=== PATIENT | female | born 1995 | race Caucasian/White ===

== ENCOUNTER 2022-04-01 12:27 | Outpatient (CLI) | payer BC, MEDICAID, SELFPAY ==
--- NOTE | 2022-04-01 | US_ITS ---
WS: [id number] OB ultrasound, 04/01/2022 Clinical Data: 18 WEEKS GESTATION OF Comparison: None. Findings: There is a single intrauterine in the breech presentation. The placenta is Anterior and gra de 0. There is a normal amount of amnionic fluid. The heart rate is 151 beats per minute. Measurements of growth and development: BPD: 4.5 cm 19 weeks 5 days HC: 16.4 cm 19 weeks 3 days AC: 13.9 cm 19 weeks 2 days FL: 3.1 cm 19 weeks 3 days The estimated weight is 290 g or approximately 10 ounces. The estimated gestational age is 19 weeks 3 days with an CARLENE of approximately 08/23/2022.. anatomy show a normal stomach, kidneys, bladder, cord insertion, three-vessel cord, entire spin e, four-chamber heart, lateral cerebral ventricles, cerebellum and cisterna magna. US/US OB >= 14 weeks fetus [id number] Impression: 1. Single intrauterine in breech presentation. 2. Estimated gestational age 19 weeks 3 days with an CARLENE of 08/23/2022.. 3. heart rate 151 beats per minute.
== END 2022-04-01 12:28 | disposition home or self-care (01) ==
PROVIDERS: Family Provider Pediatrics Adolescent Medicine; Visit Provider Family Medicine
DX: O26.892 Other specified pregnancy related conditions, second trimester (principal); Z3A.18 18 weeks gestation of pregnancy
CPT/HCPCS: 76805

== ENCOUNTER 2022-06-16 22:50 | Outpatient (CLI) | payer BC, MEDICAID, SELFPAY ==
[2022-06-16 22:58] VITALS: TEMP 36.1
[2022-06-16 23:00] VITALS: BP 108/70; PULSE 67
[2022-06-16 23:10] VITALS: BMI 29.6
[2022-06-16 23:14] VITALS: BP 118/67; PULSE 63
[2022-06-16 23:26] LABS: Add Urine Culture? No; Bacteria Urine 2+ /hpf; Bilirubin Urine Neg (Negative); Blood Urine Neg (Negative); Glucose Urine UA Norm (Normal); Ketones Urine Negative (Negative); Leukocyte Esterase Urine Negative (Negative); Nitrate Urine Negative (Negative); Protein Urine Neg (Negative); RBC Urine 0-4 /hpf (0-2); Specific Gravity, Urine 1.015 (1.005-1.030); Urine Appearance Clear (CLEAR); Urine Color Yellow (Yellow); Urobilinogen Urine Norm (Negative); pH Urine 6.5 (5-7)
[2022-06-16 23:28] VITALS: BP 119/68; PULSE 56
[2022-06-16 23:43] VITALS: BP 121/72; PULSE 54
[2022-06-16 23:58] VITALS: BP 118/63; PULSE 57
[2022-06-17] VITALS (7 sets, daily range): BP systolic 106–124; BP diastolic 57–73; PULSE 51–60
[2022-06-17] MEDS: ondansetron 4 MG Tablet PO (01:24)
== END 2022-06-17 01:49 | disposition home or self-care (01) ==
LOC: OPOB 22:53 → OBGYN 22:54
PROVIDERS: Family Provider Pediatrics Adolescent Medicine; Visit Provider Family Medicine
DX: O26.899 Other specified pregnancy related conditions, unspecified trimester (principal); Z3A.00 Weeks of gestation of pregnancy not specified; M54.50 Low back pain, unspecified; R11.0 Nausea
CPT/HCPCS: 59025; 81001; 99211; Q0162

== ENCOUNTER 2022-07-10 09:57 | Outpatient (CLI) | payer BC, MEDICAID, SELFPAY ==
[2022-07-10 10:09] VITALS: TEMP 35.5
[2022-07-10 10:10] VITALS: BP 121/77; PULSE 78
[2022-07-10 10:25] VITALS: BP 107/69; PULSE 81
[2022-07-10 10:34] VITALS: RESP 15
[2022-07-10 10:35] VITALS: BMI 29.7
[2022-07-10 10:40] VITALS: BP 105/67; PULSE 71
== END 2022-07-10 11:04 | disposition home or self-care (01) ==
LOC: OPOB 09:57 → OBGYN 09:58
PROVIDERS: Family Provider Pediatrics Adolescent Medicine; Visit Provider Family Medicine
DX: O24.419 Gestational diabetes mellitus in pregnancy, unspecified control (principal)
CPT/HCPCS: 59025

== ENCOUNTER 2022-07-14 09:25 | Outpatient (CLI) | payer BC, MEDICAID, SELFPAY ==
[2022-07-14 09:31] VITALS: BP 118/54; PULSE 90; TEMP 35.6
[2022-07-14 10:00] VITALS: BMI 30.4
[2022-07-14 11:02] VITALS: BP 118/54; PULSE 90; RESP 16; TEMP 35.6
== END 2022-07-14 10:20 | disposition home or self-care (01) ==
LOC: OPOB 09:28 → OBGYN 09:28
PROVIDERS: Family Provider Pediatrics Adolescent Medicine; Visit Provider Family Medicine
DX: O24.419 Gestational diabetes mellitus in pregnancy, unspecified control (principal); Z3A.19 19 weeks gestation of pregnancy
CPT/HCPCS: 59025; 99211

== ENCOUNTER 2022-07-17 11:00 | Outpatient (CLI) | payer BC, MEDICAID, SELFPAY ==
[2022-07-17 11:13] VITALS: TEMP 35.8
[2022-07-17 11:14] VITALS: BP 110/68; PULSE 75
[2022-07-17 11:33] VITALS: BMI 29.6
[2022-07-17 11:35] VITALS: BP 101/59; PULSE 59
[2022-07-17 11:55] VITALS: BP 101/55; PULSE 63
[2022-07-17 12:02] VITALS: TEMP 35.7
[2022-07-17 12:09] VITALS: BP 101/55; PULSE 68; RESP 18; TEMP 35.7
== END 2022-07-17 12:05 | disposition home or self-care (01) ==
LOC: OPOB 11:00 → OBGYN 11:01
PROVIDERS: Family Provider Pediatrics Adolescent Medicine; Visit Provider Family Medicine
DX: O24.419 Gestational diabetes mellitus in pregnancy, unspecified control (principal); Z3A.34 34 weeks gestation of pregnancy
CPT/HCPCS: 59025

== ENCOUNTER 2022-07-21 13:10 | Outpatient (CLI) | payer BC, MEDICAID, SELFPAY ==
[2022-07-21 13:16] VITALS: BP 111/67; PULSE 92; TEMP 35.8
[2022-07-21 13:20] VITALS: RESP 17; BMI 29.2
[2022-07-21 13:46] VITALS: BP 99/65; PULSE 68
[2022-07-21 13:55] VITALS: BP 99/65; PULSE 68
== END 2022-07-21 13:55 | disposition home or self-care (01) ==
LOC: OPOB 13:12 → OBGYN 13:13
PROVIDERS: Family Provider Pediatrics Adolescent Medicine; Visit Provider Family Medicine
DX: O24.419 Gestational diabetes mellitus in pregnancy, unspecified control (principal); Z3A.00 Weeks of gestation of pregnancy not specified
CPT/HCPCS: 59025

== ENCOUNTER 2022-07-28 10:57 | Outpatient (CLI) | payer BC, MEDICAID, SELFPAY ==
[2022-07-28 11:03] VITALS: BP 125/58; PULSE 86
[2022-07-28 11:11] VITALS: BMI 30.3
[2022-07-28 11:25] VITALS: BP 106/67; PULSE 88
[2022-07-28 11:31] VITALS: BP 109/69; PULSE 85
== END 2022-07-28 11:32 | disposition home or self-care (01) ==
LOC: OPOB 10:59 → OBGYN 11:00
PROVIDERS: Family Provider Pediatrics Adolescent Medicine; Visit Provider Family Medicine
DX: O26.899 Other specified pregnancy related conditions, unspecified trimester (principal); Z3A.00 Weeks of gestation of pregnancy not specified
CPT/HCPCS: 59025; 99211

== ENCOUNTER 2022-07-31 10:36 | Outpatient (CLI) | payer BC, MEDICAID, SELFPAY ==
[2022-07-31 10:45] VITALS: BP 121/65; PULSE 85; BMI 29.7
== END 2022-07-31 11:10 | disposition home or self-care (01) ==
LOC: OPOB 10:36 → OBGYN 10:37
PROVIDERS: Family Provider Pediatrics Adolescent Medicine; Visit Provider Family Medicine
DX: O24.419 Gestational diabetes mellitus in pregnancy, unspecified control (principal); Z3A.00 Weeks of gestation of pregnancy not specified
CPT/HCPCS: 59025

== ENCOUNTER 2022-08-04 10:37 | Outpatient (CLI) | payer BC, MEDICAID, SELFPAY ==
[2022-08-04 10:41] VITALS: BP 115/70; PULSE 83
[2022-08-04 10:55] VITALS: RESP 16; BMI 29.7
[2022-08-04 10:56] VITALS: BP 106/64; PULSE 62
== END 2022-08-04 11:03 | disposition home or self-care (01) ==
LOC: OPOB 10:37 → OBGYN 10:38
PROVIDERS: Family Provider Pediatrics Adolescent Medicine; Visit Provider Family Medicine
DX: O24.419 Gestational diabetes mellitus in pregnancy, unspecified control (principal); Z3A.00 Weeks of gestation of pregnancy not specified
CPT/HCPCS: 59025

== ENCOUNTER 2022-08-07 10:19 | Outpatient (CLI) | payer BC, MEDICAID, SELFPAY ==
[2022-08-07 10:15] VITALS: RESP 17; BMI 29.4
[2022-08-07 10:45] VITALS: BP 111/71; PULSE 75
== END 2022-08-07 11:01 | disposition home or self-care (01) ==
LOC: OPOB 10:20 → OBGYN 10:25
PROVIDERS: Family Provider Pediatrics Adolescent Medicine; Visit Provider Family Medicine
DX: O24.419 Gestational diabetes mellitus in pregnancy, unspecified control (principal); Z3A.00 Weeks of gestation of pregnancy not specified
CPT/HCPCS: 59025

== ENCOUNTER 2022-08-14 11:21 | Outpatient (CLI) | payer BC, MEDICAID, SELFPAY ==
[2022-08-14 11:29] VITALS: BP 111/71; PULSE 80
== END 2022-08-14 12:03 | disposition home or self-care (01) ==
LOC: OPOB 11:23 → OBGYN 11:24
PROVIDERS: Family Provider Pediatrics Adolescent Medicine; Visit Provider Family Medicine
DX: O24.419 Gestational diabetes mellitus in pregnancy, unspecified control (principal); Z3A.00 Weeks of gestation of pregnancy not specified
CPT/HCPCS: 59025

== ENCOUNTER 2022-08-17 21:13 | Inpatient (IN) | payer BC, MEDICAID, SELFPAY ==
[2022-08-17] VITALS (8 sets, daily range): BP systolic 93–117; BP diastolic 55–82; PULSE 53–121; RESP 16; TEMP 36.2–36.7; BMI 29.7
[2022-08-17 20:50] LABS: Basophils % 0.3 %; Eosinophils # 0.1 10^3/uL (0.0-0.8); Eosinophils % 0.6 %; Hematocrit 31.5 % (37.0-47.0); Hemoglobin 11.1 g/dL (11.5-15.3); Lymphocytes # 2.2 10^3/uL (0.8-4.8); Mean Corpuscular HGB Conc 35.2 g/dL (30.0-36.0); Mean Corpuscular Hemoglobin 31.1 pg (28.0-34.0); Mean Corpuscular Volume 88.2 fl (81-99); Mean Platelet Volume 10.8 fL (7.4-10.4); Monocytes # 0.7 10^3/uL (0.2-0.9); Monocytes % 5.6 %; Neutrophils % 73.8 %; Nucleated Red Blood Cells % 0 %; Platelet Count 268 10^3/cmm (130-400); Red Blood Count 3.57 10^6/uL (4.1-5.3); Red Cell Distribution Width 13.5 % (12.1-15.1); White Blood Count 11.5 10^3/uL (4.0-10.0)
[2022-08-17] MEDS: miSOPROStol 100 mcg tablet 25 MCG VAGINAL (21:00)
[2022-08-18] VITALS (59 sets, daily range): BP systolic 103–147; BP diastolic 53–93; PULSE 47–117; RESP 15–18; TEMP 35.7–36.9; O2SAT 91–100
[2022-08-18] MEDS: dextrose 5%-lactated ringers 1,000 ML 125 ML IV (00:37)
[2022-08-18 00:52] LABS: Glucose Point of Care 98 mg/dL (70-110)
[2022-08-18] MEDS: lactated ringers 1,000 ML 999 ML IV (01:36)
--- NOTE | 2022-08-18 02:25 | ANES.PREANE2 ---
Pre-Anesthetic Assessment Height/Weight: Height 1.7 m Weight 86.183 kg Temp Pulse Resp BP Pulse Ox O2 Del Method 97.2 F L 66 16 113/66 99 08/17/22 21:04 08/18/22 02:20 08/17/22 20:37 08/18/22 02:19 08/18/22 02:20 08/17/22 20:30 Preop Diagnosis: labor pain epidural Familial anesthetic complications: none Social Tobacco and No alcohol 0.5 pack(s) per day Exam alert, oriented x 3, clear to auscultation bilaterally and regular rate & rhythm Airway Submandibular: within normal limits Cervical ROM: within normal limits Mallampati: Class II Dentition: full Pulmonary None reported CV/HEM None reported None reported Hepatic None reported GI None reported Metabolic Diabetes Mellitus (gestational) Musc/skel None reported Neuropsych None reported Anesthetic Plan ASA status: 2 Anesthesia: Regional (specify below) Risk of > 500 ml blood loss (7ml/kg in children): No Medications/Allergies Home Medications Medication Instructions Recorded Confirmed Last Taken Type 1 cap PO DAILY 06/17/22 08/17/22 08/17/22 History metformin 500 mg tablet 500 mg PO DAILY 07/10/22 08/17/22 08/17/22 History Allergies Allergy/AdvReac Type Severity Reaction Status Date / Time No Known Allergies Allergy Verified 08/17/22 22:29 Current Medications Generic Name Dose Route Start Last Admin Trade Name Freq PRN Reason Stop Dose Admin Dextrose/Lactated Ringer's 1,000 mls @ 125 mls/hr 08/17/22 20:37 08/18/22 00:37 Dextrose 5%-Lactated Ringers IV 125 mls/hr .Q8H PRN Administration per label comments Lactated Ringer's 1,000 mls @ 999 mls/hr 08/18/22 01:28 08/18/22 01:36 Lactated Ringers IV 999 mls/hr .Q1H1M PRN Administration See label comments PFSH Anesthesia Family History (Updated 01/07/22 @ 07:57 by Essence Anderson LPN) Denies family history of Colon cancer Ovarian cancer Diabetes Heart disease Hypercholesteremia Breast cancer Hypertension Uterine cancer Thyroid disease Stroke Female Reproductive History Date of last menstrual period: 11/06/21 : 1 Data Anesthesia : 08/17/22 20:00 Short CBC 08/17/22 Range/Units 20:00 WBC 11.5 H (4.0-10.0) 10^3/uL Hgb 11.1 L (11.5-15.3) g/dL Hct 31.5 L (37.0-47.0) % MCV 88.2 (81-99) fl Plt Count 268 (130-400) 10^3/cmm Neut % (Auto) 73.8 % Neut # (Auto) 8.50 H (1.8-7.7) 10^3/uL Cardiac Studies: No Data to Display
--- NOTE | 2022-08-18 02:57 | ANES.PROC ---
Anesthesia Procedures Procedure/Date: 08/18/22 epidural Procedure Narrative: epidural complete, bolus given, epidural pump initiated with REPORTING COORDINATOR education given, vitals taken during procedure and satisfactory throughout, patient admits to decrease pain, report of procedure to OB RN Epidural: Time Out Performed: Yes Consents Signed: Procedure Consent Consent: requested by attending/covering physician, from patient, risks and benefits reviewed and patient agrees to proceed Lumbar Level: L3-L4 Epidural position: sitting Epidural procedure: sterile prep of area, 1% lidocaine to numb the area (3 mL), 18 g needle, negative for paresthesia passed, neg for paresthesia, test dose given, 1.5% xylocaine 1:200k epi (5 mL), 0.2% Ropivacaine bolus ml (5 mL), placed PCEA, no systemic response, sterile dressing applied, L.U.D. no apparent complications and 0.2% Ropiavacaine @ mls/hr (13 mL/hr)
--- NOTE | 2022-08-18 03:49 | PM.OPHPUD ---
Labor & Delivery H&P Update Date of Procedure: August 18, 2022 Date H&P Performed: 08/14/22 Admission Diagnosis: IUP at 39 weeks gesstation Gestational Diabetes on oral hypoglycemic Preop diagnosis: labor pain Primary indication for procedure: GDM Planned procedure: induction with cytotec
--- NOTE | 2022-08-18 03:50 | P.PCNOB_ITS ---
Delivery Note: Date of delivery: August 18, 2022 Procedure: Normal spontaneous vaginal delivery Delivering Physician: Anamika Barkley MD Estimated blood loss (mL): 220 Pre-Delivery Course: She had routine care at [facility]. She was blood type a positive, antibody negative, hepatitis B surface antigen nonreactive, hepatitis C antibody nonreactive, HIV nonreactive, RPR nonreactive, rubella immune, GC chlamydia negative, GBS negative. She failed her 1 hour glucose tolerance test and was diagnosed with gestational diabetes mellitus with a 3-hour glucose tolerance test. Her diabetes was well controlled with 1000 mg of metformin daily. She underwent twice-weekly NST testing beginning around 33 weeks gestation. She also had monthly growth ultrasounds. Delivery: This is a 27-year-old G1, P0 at 39 weeks 0 days gestation with an CARLENE of 08/24/2022 who was admitted for induction secondary to gestational diabetes mellitus. Her gestational diabetes mellitus was well controlled on metformin. Her cervix was 1 cm 50% effaced -3 station. She was given 1 dose of Cytotec. Her labor progressed rather rapidly after that. She had spontaneous rupture of membranes approximately 2 hours prior to delivery. She received an epidural for pain management. She only had to push for about 3 contractions and had a normal spontaneous vaginal delivery of a viable female weight 2635 g, 5 pounds 13 ounces over an intact perineum. Apgars were 8 and 9. The infant was suctioned at delivery and placed on the mother's chest. The cord was clamped and cut. The placenta was delivered grossly intact and normal to inspection. There was a right vaginal laceration that was sutured using 3-0 chromic. There was a second-degree perineal laceration that was then sutured using 3-0 chromic. Mother and were doing well after delivery. Coding Level of Care Code Acute Machine Fur Cleaner for Tamra Lamar
[2022-08-18] MEDS: docusate sodium 100 mg Capsule PO ×2 (08:40→21:13)
[2022-08-18] MEDS: ibuprofen 800 mg tablet PO ×3 (08:40→21:13)
[2022-08-18] MEDS: prenatal vitamin Capsule 1 CAP PO (08:40)
[2022-08-18 18:53] LABS: Hematocrit 29.1 % (37.0-47.0); Hemoglobin 9.9 g/dL (11.5-15.3); Mean Corpuscular Hemoglobin 30.7 pg (28.0-34.0); Mean Corpuscular Volume 90.1 fl (81-99); Mean Platelet Volume 11.4 fL (7.4-10.4); Platelet Count 224 10^3/cmm (130-400); Red Blood Count 3.23 10^6/uL (4.1-5.3); Red Cell Distribution Width 13.7 % (12.1-15.1); White Blood Count 15.2 10^3/uL (4.0-10.0)
[2022-08-18] MEDS: benzocaine-menthol 78 gm Canister 1 SPRAY TOPICAL (21:13)
[2022-08-19 05:00] VITALS: BP 108/78; PULSE 59; RESP 14; TEMP 36.8
--- NOTE | 2022-08-19 07:48 | P.DS_ITS ---
Discharge Providers Date of Admission: 08/17/22 21:13 Date of Discharge: August 19, 2022 Attending Provider at Admission: Anamika Barkley MD Attending Provider at Discharge: Anamika Barkley MD Reason for Visit Reason for Visit: IOL Hospital Course Hospital Course This is a 27-year-old G1 now P1 who was admitted for induction at 39 weeks gestation. Her was complicated by gestational diabetes mellitus that was controlled on metformin. She had a normal spontaneous vaginal delivery of a viable female . Mother and were doing well after delivery. Mother was ambulating, tolerating a regular diet, had decreased vaginal bleeding and was comfortable with discharge home. Physical Exam Narrative: Alert and oriented, heart regular rate and rhythm, lungs clear to auscultation bilaterally, abdomen soft and nontender, extremities have no calf tenderness and only trace edema Urinary Catheter Management: Solorzano Latex: Cath Placed During This Visit: yes, but has since been removed by the nurse Reason for Continuing Indwelling Catheter: Decision to DC Catheter Urinary Catheter Date of Insertion: 08/18/22 Urinary Catheter Time of Insertion: 03:04 Date Urinary Catheter Removed: 08/18/22 Time Urinary Catheter Discontinued: 03:20 Discharge Data Studies Completed and Pending Laboratory Results WBC 15.2 10^3/uL (4.0-10.0) H 08/18/22 18:13 RBC 3.23 10^6/uL (4.1-5.3) L 08/18/22 18:13 Hgb 9.9 g/dL (11.5-15.3) L 08/18/22 18:13 Hct 29.1 % (37.0-47.0) L 08/18/22 18:13 MCV 90.1 fl (81-99) 08/18/22 18:13 MCH 30.7 pg (28.0-34.0) 08/18/22 18:13 MCHC 34.0 g/dL (30.0-36.0) 08/18/22 18:13 RDW 13.7 % (12.1-15.1) 08/18/22 18:13 Plt Count 224 10^3/cmm (130-400) 08/18/22 18:13 MPV 11.4 fL (7.4-10.4) H 08/18/22 18:13 Neut % (Auto) 73.8 % 08/17/22 20:00 Lymph % (Auto) 19.0 % 08/17/22 20:00 [place] % (Auto) 5.6 % 08/17/22 20:00 Eos % (Auto) 0.6 % 08/17/22 20:00 Baso % (Auto) 0.3 % 08/17/22 20:00 Neut # (Auto) 8.50 10^3/uL (1.8-7.7) H 08/17/22 20:00 Lymph # (Auto) 2.2 10^3/uL (0.8-4.8) 08/17/22 20:00 [place] # (Auto) 0.7 10^3/uL (0.2-0.9) 08/17/22 20:00 Eos # (Auto) 0.1 10^3/uL (0.0-0.8) 08/17/22 20:00 Baso # (Auto) 0.0 10^3/uL (0.0-0.1) 08/17/22 20:00 Nucleated RBC % (auto) 0 % 08/17/22 20:00 Nucleated RBCs # 0.0 /100WBC 08/17/22 20:00 POC Glucose 98 mg/dL (70-110) 08/18/22 00:46 Vitals Last Vital Signs Temp 98.2 F 08/19/22 05:00 Pulse 59 L 08/19/22 05:00 Resp 14 08/19/22 05:00 BP 108/78 08/19/22 05:00 Pulse Ox 98 08/18/22 09:30 O2 Del Method 08/18/22 17:30 Discharge Plan Discharge Patient Disposition: Home Condition: Stable Prescriptions: Continued capsule 1 cap PO DAILY Discontinued metformin 500 mg Tablet 500 mg PO DAILY Discharge Orders: Discharge Order (Routine); Ordered 08/19/22 Ordered By: Anamika Barkley Referrals: Anamika Barkley MD [Physician] - 1 month Discharge Diet: Usual diet Discharge Activity: Limit activity as instructed Patient Instructions: Opioid Safety Discharge Attestations Time Spent in Discharge Care*: less than 30 min Quality Metrics Clinical Quality Measures [ No reported AMI, CVA or VTE this stay] Coding Level of Care Code Acute Chg FW DC note
[2022-08-19] MEDS: prenatal vitamin Capsule 1 CAP PO (08:41)
[2022-08-19] MEDS: ibuprofen 800 mg tablet PO (08:41)
[2022-08-19] MEDS: docusate sodium 100 mg Capsule PO (08:41)
[2022-08-19 09:45] VITALS: BP 104/72; PULSE 60; RESP 17
[2022-08-19 12:05] VITALS: BP 105/64; PULSE 67; RESP 17; TEMP 36.7
[2022-08-19 12:15] VITALS: BP 105/64; PULSE 67; RESP 17; TEMP 36.7
--- NOTE | 2022-08-19 13:34 | ANE.PACU2 ---
Inpatient post-anesthesia follow up: Airway intact: Yes Vital signs: Temperature 98.0 F Pulse Rate 67 Respiratory Rate 17 Blood Pressure 105/64 Pulse Oximetry 98 Oxygen Delivery Me thod Room Air Oxygen Flow Rate Fraction of Inspir ed Oxygen Hydration adequate: Yes Nausea and vomiting: No Pain level: 1 Mental status: Baseline
== END 2022-08-19 12:45 | disposition home or self-care (01) | DRG 807 ==
LOC: OPOB 21:13 → OBGYN 21:13
PROVIDERS: Admitting Provider Family Medicine; Family Provider Pediatrics Adolescent Medicine; Visit Provider Family Medicine
DX: O24.425 Gestational diabetes mellitus in childbirth, controlled by oral hypoglycemic drugs (principal); Z37.0 Single live birth; O70.1 Second degree perineal laceration during delivery; Z3A.39 39 weeks gestation of pregnancy
CPT/HCPCS: 36415; 36416; 51702; 59025; 59409; 82962; 85025; 85027; 99211

== ENCOUNTER 2023-07-10 15:10 | Outpatient (CLI) | payer BC, MEDICAID, SELFPAY ==
--- NOTE | 2023-07-10 15:29 | US_ITS ---
WS: [id number] OBSTETRICAL ULTRASOUND COMPLETE HISTORY: SUPERVISION OF SECOND TRIMESTER/ANATOMY CHECK COMPARISON: None available. Single intrauterine gestation in Cephalic presentation. Cervix is noted imaged. Normal amount of amniotic fluid surrounds the fetus. Placenta: Anterior, no previa or abruption. Placenta grade 1 Heart: 147 BPM. Four chambers are identified. LVOT is normal. RVOT is not visualized. Anatomy: Intracranial structures are poorly visualized. spine is negative for kidneys, st omach and urinary bladder are unremarkable. Abdominal wall, three-vessel cord and cord insertion site are normal. 4 extremities are present. profile: Not visualized. Gender: Female measurements: BPD = 4.4 cm = 19w1d; HC = 16.3 cm = 19w0d; AC = 13.3 cm = 18w5d; FL = 3.0 cm = 19w1d; EFW: 265 g. Not available. Biometry is internally concordant. AGA by ultrasound: 19w0d CARLENE by ultrasound: 12/04/2023 IMPRESSION: 1. Single intrauterine gestation of 19w0d with an CARLENE of 12/04/2023. 2. Recommend short-term follow-up of the cervix and cervical length, profile, intracranial str uctures and RVOT. The remaining anatomy is negative.
== END 2023-07-10 15:11 | disposition home or self-care (01) ==
PROVIDERS: Visit Provider Family Medicine
DX: Z34.82 Encounter for supervision of other normal pregnancy, second trimester (principal)
CPT/HCPCS: 76805

== ENCOUNTER 2023-07-24 13:46 | Outpatient (CLI) | payer BC, MEDICAID, SELFPAY ==
--- NOTE | 2023-07-24 13:51 | US_ITS ---
WS: [id number] ULTRASOUND OB FOCUSED HISTORY: INCOMPLETE ANATOMY SCAN/FOLLOW UP, reevaluate cervix, cervical length, profile, intrac ranial structures, RVOT. COMPARISON: 07/10/2023 Single intrauterine gestation heart rate at 144 BPM. Cervix is closed measuring 4.3 cm. Normal amount of amniotic fluid. Anterior placenta. Reevaluation o f the heart is normal. Normal outflow tracts. Normal profile. Normal intracranial structures. IMPRESSION: 1. Additional imaging the heart is normal. 2. Normal intracranial structures, profile and cervix.
== END 2023-07-24 13:47 | disposition home or self-care (01) ==
PROVIDERS: PCP Family Medicine; Visit Provider Family Medicine
DX: Z36.2 Encounter for other antenatal screening follow-up (principal)
CPT/HCPCS: 76816

== ENCOUNTER 2023-11-24 00:31 | Inpatient (IN) | payer BC, MEDICAID, SELFPAY ==
[2023-11-23 16:09] VITALS: BMI 29.9
[2023-11-23 16:16] VITALS: BP 122/77; PULSE 95; RESP 16
[2023-11-23 16:54] LABS: Basophils % 0.2 %; Eosinophils # 0.1 10^3/uL (0.0-0.8); Eosinophils % 1.1 %; Hematocrit 32.2 % (36-47); Lymphocytes # 1.7 10^3/uL (0.8-4.8); Lymphocytes % 18.5 %; Mean Corpuscular HGB Conc 34.5 g/dL (30-55); Mean Corpuscular Hemoglobin 31.2 pg (27-33); Mean Corpuscular Volume 90.4 fl (85-98); Mean Platelet Volume 10.8 fL (7.4-10.4); Monocytes # 0.4 10^3/uL (0.2-0.9); Monocytes % 4.8 %; Neutrophils # 6.78 10^3/uL (1.8-7.7); Neutrophils % 74.8 %; Nucleated Red Blood Cells % 0 %; Platelet Count 201 10^3/cmm (157-399); Red Blood Count 3.56 10^6/uL (3.85-5.65); Red Cell Distribution Width 13.3 % (12.1-15.1); White Blood Count 9.05 10^3/uL (3.29-11.43)
[2023-11-23] MEDS: oxytocin 30 UNIT/500 ML BAG IV (16:55)
[2023-11-23] MEDS: dextrose 5%-lactated ringers 1,000 ML 125 ML IV (16:55)
[2023-11-23 17:02] VITALS: BP 110/79; PULSE 75
--- NOTE | 2023-11-23 17:50 | PM.OBGYHP ---
Providers/Chief Complaint Primary Care Provider: Maryanne Tomlin DO Chief Complaint: elective induction of labor HPI EXTRUSION LINE OPERATOR History of Present Illness Zenaida Lomax is a 28 year old female at 39w 1d based on sure LMP presenting for elective induction with past medical history of gestational diabetes in her last , tobacco use. Denies cramping/contractions, LOF, vaginal bleeding. Good movement. care has been good and starting in first trimester- she did transfer care in her 2nd trimester. She does have hx of gestational diabetes in her first but passed both early and routine 1 hr GTT in this . Present Details : 2 Para: 1 Labs Blood type OB HPI: A (+) positive Rubella: Immune RPR: Negative GBS: Negative HBsAG: Negative Other Lab Information: 06/15/23 1 hr GTT 106, 08/25/23 1 hr GTT 133 Pap smear NILM GC/Chlam neg, Trich neg cfDNA negative for Trisomy 13, 18, 21, female fetus, microdeletion not detected UCx neg, UDS neg HIV NR, Hep C Ab NR 1st trimester Hgb 12.8/Hct 38 3rd trimester 12.0/35.1 Review of Systems Const: Denies: fever(s) or chills Card: Denies: chest pain or palpitations Resp: Denies: dyspnea, productive cough or non-productive cough : Denies: vaginal bleeding or vaginal discharge Medications/Allergies Home Medications Medication Instructions Recorded Confirmed Last Taken Type 1 cap PO DAILY 06/17/22 11/23/23 11/23/23 01:00 History 1 tab Allergies Allergy/AdvReac Type Severity Reaction Status Date / Time No Known Allergies Allergy Verified 11/23/23 17:04 PFSH EXTRUSION LINE OPERATOR PFSH: Family History (Updated 01/07/22 @ 07:57 by Essence Anderson LPN) Denies family history of Colon cancer Ovarian cancer Diabetes Heart disease Hypercholesteremia Breast cancer Hypertension Uterine cancer Thyroid disease Stroke History History History 2 Term 1 0 Miscarriages/Ectopic 0 Living Children 1 Vitals/I&O/Wt Last Vital Signs Pulse 75 11/23/23 17:02 Resp 16 11/23/23 16:16 BP 110/79 11/23/23 17:02 O2 Del Method Room Air 11/23/23 16:09 Weight last 48 hrs Weight 191 lb Physical Exam Const: COMMON NORMALS: no acute distress, healthy appearing, alert and well nourished Resp: COMMON NORMALS: normal respiratory effort and clear to auscultation bilaterally Cardio: COMMON NORMALS: regular rate, regular rhythm, S1 normal heart sound present, S2 normal heart sound present and No murmurs present (Cardio) GI: OTHER: abdomen gravid size consistent with dates Extremity: NARRATIVE EXTREMITY EXAM: No LE edema Psych: COMMON NORMALS: cooperative, normal affect and speech normal Data 11/23/23 16:25 Results Labs OB ([facility]): Obstetrics 07/24/23 Blood Type A Positive 11/23/23 Antibody Screen Negative 11/23/23 Hct 32.2 % (36-47) L 11/23/23 Hgb 11.10 g/dL (11.27-16.99) L 11/23/23 Rho(D) Type Rh positive 11/23/23 Plt Count 201 10^3/cmm (157-399) 11/23/23 A&P Assessment and plan (1) Term : (2) Elective induction of labor planned: Plan 28 yo F at 39w1d presenting for elective induction of labor. Category I FHT. Routine labs- CBC, Blood typing. Intermediate dose pitocin for induction. Continuous EFM. May have epidural when desired, fentanyl protocol as well. Attestations Medical Necessity Statement*: Zenaida Donnell Davilatt's hospital stay will require greater than 2 midnights for routine labor and delivery and care. Coding Level of Care Code Acute Code for Chg Fwd Diagnoses Term Z34.90 Elective induction of labor planned
[2023-11-23] MEDS: lactated ringers 1,000 ML 999 ML IV (20:40)
--- NOTE | 2023-11-23 21:09 | P.ANESASSM_ITS ---
Pre-Anesthetic Assessment Height/Weight: Height 1.7 m Weight 86.636 kg Pulse Resp BP O2 Del Method 75 16 110/79 Room Air 11/23/23 17:02 11/23/23 16:16 11/23/23 17:02 11/23/23 16:09 Preop Diagnosis: labor Pain epidural Familial anesthetic complications: none Was Beta Bishop taken within 24 hours: N/A Was Clonidine taken within 24 hours: N/A Social No alcohol and No tobacco Exam alert, oriented x 3, clear to auscultation bilaterally and regular rate & rhythm Airway Submandibular: within normal limits Cervical ROM: within normal limits Mallampati: Class II Dentition: full Pulmonary None reported CV/HEM None reported None reported Hepatic None reported GI None reported Metabolic None reported Musc/skel None reported Neuropsych None reported Anesthetic Plan ASA status: 2 Anesthesia: Regional (specify below) Risk of > 500 ml blood loss (7ml/kg in children): No Medications/Allergies Home Medications Medication Instructions Recorded Confirmed Last Taken Type 1 cap PO DAILY 06/17/22 11/23/23 11/23/23 01:00 History 1 tab Allergies Allergy/AdvReac Type Severity Reaction Status Date / Time No Known Allergies Allergy Verified 11/23/23 17:04 Current Medications Generic Name Dose Route Start Last Admin Trade Name Freq PRN Reason Stop Dose Admin Dextrose/Lactated Ringer's 1,000 mls @ 125 mls/hr 11/23/23 16:45 11/23/23 16:55 Dextrose 5%-Lactated Ringers IV 125 mls/hr .Q8H JOSE Administration Oxytocin 30 unit in 500 mls @ 1 mls/hr 11/23/23 16:45 11/23/23 19:45 Pitocin IV 12 milliunit/min .Q24H JOSE 12 mls/hr Titration Protocol 1 MILLIUNIT/MIN PFSH Anesthesia Family History (Updated 01/07/22 @ 07:57 by Essence Anderson LPN) Denies family history of Colon cancer Ovarian cancer Diabetes Heart disease Hypercholesteremia Breast cancer Hypertension Uterine cancer Thyroid disease Stroke Female Reproductive History : 2 Data Anesthesia 11/23/23 16:25 Short CBC 11/23/23 Range/Units 16:25 WBC 9.05 (3.29-11.43) 10^3/uL Hgb 11.10 L (11.27-16.99) g/dL Hct 32.2 L (36-47) % MCV 90.4 (85-98) fl Plt Count 201 (157-399) 10^3/cmm Neut % (Auto) 74.8 % Neut # (Auto) 6.78 (1.8-7.7) 10^3/uL Blood Bank 11/23/23 16:25 Blood Type A Positive Rho(D) Type Rh positive Antibody Screen Negative Cardiac Studies: 2 No Data to Display
[2023-11-23] MEDS: ROPivacaine syringe 100 MG/50 ML SYRINGE 13 MG EPIDURAL (21:29)
--- NOTE | 2023-11-23 21:35 | ANES.PROC ---
Anesthesia Procedures Procedure/Date: 11/23/23 epidural Procedure Narrative: epidural complete, bolus given, epidural pump initiated with FLIGHT SUPERINTENDENT education given, vitals taken during procedure and satisfactory throughout, patient admits to decrease pain, report of procedure to OB RN Epidural: Time Out Performed: Yes Consents Signed: Procedure Consent Consent: requested by attending/covering physician, from patient, risks and benefits reviewed and patient agrees to proceed Lumbar Level: L3-L4 Epidural position: sitting Epidural procedure: sterile prep of area, 1% lidocaine to numb the area (3 mL), 18 g needle, negative for paresthesia passed, neg for paresthesia, test dose given, 1.5% xylocaine 1:200k epi (5 mL), 0.2% Ropivacaine bolus ml (5 mL), placed PCEA, no systemic response, sterile dressing applied, L.U.D. no apparent complications and 0.2% Ropiavacaine @ mls/hr (13 mL/hr)
[2023-11-24] VITALS (30 sets, daily range): BP systolic 106–125; BP diastolic 56–75; PULSE 52–93; RESP 16–18; TEMP 36.5–37.2; O2SAT 96–98; BMI 29.9
[2023-11-24] MEDS: ROPivacaine syringe 100 MG/50 ML SYRINGE 13 MG EPIDURAL ×3 (00:23→07:43)
[2023-11-24] MEDS: dextrose 5%-lactated ringers 1,000 ML 125 ML IV ×2 (00:24→07:44)
--- NOTE | 2023-11-24 03:46 | PC.NURSE ---
See centrity for vital signs from 1900 11/23/23 to 0700 11/24/23
[2023-11-24] MEDS: oxytocin 30 UNIT/500 ML BAG 600 UNIT IV (09:50)
--- NOTE | 2023-11-24 10:05 | PM.DELIVERY ---
Delivery Note: Date of delivery: November 24, 2023 Pre-delivery diagnoses: Term Tobacco use Post-delivery diagnoses: Term delivery of viable female Procedure: Spontaneous vaginal delivery Delivering Physician: Maryanne Tomlin DO Estimated blood loss (mL): 200 Pre-Delivery Course: Admitted for elective induction of labor on 11/23/23 with SVE 2/50/-3. She was initiated on intermediate dose Pitocin. She gradually progressed overnight to SVE of 5.5/80/-3 at approximately 7 AM with AROM subsequently performed at 07 20 with clear fluid. Following she quickly progressed to complete. Delivery: Patient progressed to complete. Patient placed in lithotomy position. Patient pushed with adequate effort. Head delivered in OA position, no nuchal cord was present. Shoulders and rest of body delivered without difficulty with adequate epidural anesthesia. Mouth and nares bulb suctioned. placed on maternal abdomen. Cord clamped and cut after 1 minute delay. Placenta spontaneously delivered and noted to be intact. Pitocin started. Fundus was noted to be firm with massage. The vagina and cervix were inspected and left first-degree periurethral and right labial lacerations were noted. Right periurethral abrasion was noted as well. Both lacerations were repaired using 3-0 Vicryl. Fundus was again noted to be firm however it was noted to have some clots expressed on fundal massage. Following multiple uterine sweeps performed and uterus cleared of clots. Following fundus noted to be firm with minimal bleeding and no further clots expressed. Female born at 09 26 on 11[birth year]24/2021 with 10/10 weighing 6 pounds 1 oz and measuring 19.5 in length Placenta noted to be intact with centrally inserted umbilical cord and three-vessel cord. Complications: Maternal none Infant none History History History 2 Term 1 0 Miscarriages/Ectopic 0 Living Children 1 A&P Assessment and plan (1) Spontaneous vaginal delivery: Coding Level of Care Code Acute Code for Chg Fwd Diagnoses Spontaneous vaginal delivery O80
[2023-11-24] MEDS: ibuprofen 800 mg tablet PO ×2 (14:32→20:57)
[2023-11-24] MEDS: benzocaine-menthol 78 gm Canister 1 SPRAY TOPICAL (14:32)
[2023-11-24 22:42] LABS: Hematocrit 27.8 % (36-47); Mean Corpuscular HGB Conc 34.2 g/dL (30-55); Mean Corpuscular Hemoglobin 30.9 pg (27-33); Mean Corpuscular Volume 90.6 fl (85-98); Mean Platelet Volume 10.5 fL (7.4-10.4); Platelet Count 164 10^3/cmm (157-399); Red Blood Count 3.07 10^6/uL (3.85-5.65); Red Cell Distribution Width 13.5 % (12.1-15.1); White Blood Count 11.56 10^3/uL (3.29-11.43)
[2023-11-25 05:49] VITALS: BP 106/66; PULSE 56; RESP 16; TEMP 36.7; O2SAT 97
[2023-11-25] MEDS: docusate sodium 100 mg Capsule PO (09:38)
[2023-11-25] MEDS: prenatal vitamin Capsule 1 CAP PO (09:38)
[2023-11-25] MEDS: ibuprofen 800 mg tablet PO (09:38)
[2023-11-25 10:10] VITALS: BP 110/68; PULSE 54; RESP 17; TEMP 36.9; O2SAT 97
--- NOTE | 2023-11-25 11:53 | P.DS_ITS ---
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 She was initiated on intermediate dose Pitocin. She gradually progressed overnight to SVE of 5.5/80/-3 at approximately 7 AM with AROM subsequently performed at 07 20 with clear fluid. Following she quickly progressed to complete. Delivery: Patient progressed to complete. Patient placed in lithotomy position. Patient pushed with adequate effort. Head delivered in OA position, no nuchal cord was present. Shoulders and rest of body delivered without difficulty with adequate e pidural anesthesia. Mouth and nares bulb suctioned. Infant placed on maternal abdomen. Cord clamped and cut after 1 minute delay. Placenta spontaneously delivered and noted to be intact. Pitocin started. Fundus was noted to be firm with massage. The vagina and cervix were inspected and left first-degree periurethral and right labial lacerations were noted. Right periurethral abrasion was noted as well. Both lacerations were repaired using 3-0 Vicryl. Fundus was again noted to be firm however it was noted to have some clots expressed on fundal massage. Following multiple uterine sweeps performed and uterus cleared of clots. Following fundus noted to be firm with minimal bleeding and no further clots expressed. Female born at 09 26 on 11/24/2021 with 10/10 weighing 6 pounds 1 oz and measuring 19.5 in length Placenta noted to be intact with centrally inserted umbilical cord and three- vessel cord. Complications: Maternal none none course: Patient underwent on 11/24/2023. course was uncomplicated. Following delivery patient ambulated well, tolerated a normal diet without nausea or vomiting. Pain was well-controlled on PO medications, bottle/formula feeding, no leg/calf pain, no calf/leg swelling, normal urination, passing gas and normal bowel movements. Vaginal bleeding decreasing in thin lochia. labs with hemoglobin 9.5 down from 11.1 on admission. Follow-up planned for 2 and 6 weeks . Warning signs for endometritis, pre- eclampsia, DVT/PE, mastitis were reviewed, discussed additional warning signs including increased vaginal bleeding, worsening abdominal pain. Pelvic rest and activity precautions reviewed as well. She is discharged on 11/25/2023 in stable condition. Information Peripartum Data: Infant Delivery Method: Vaginal Physical Exam Const: COMMON NORMALS: no acute distress, healthy appearing, alert and well nourished Resp: COMMON NORMALS: normal respiratory effort and clear to auscultation bilaterally AUSCULTATION: clear to auscultation bilaterally Cardio: COMMON NORMALS: regular rate, regular rhythm, S1 normal heart sound present, S2 normal heart sound present and No murmurs present (Cardio) RATE: regular rate RHYTHM: regular rhythm HEART SOUNDS: S1 normal heart sound present and S2 normal heart sound present : OTHER: Uterine fundus firm and below the umbilicus Extremity: NARRATIVE EXTREMITY EXAM: No LE edema Neuro: SENSORIUM/ORIENTATION: Yes alert Psych: COMMON NORMALS: cooperative, normal affect and speech normal SPEECH: Yes normal speech Urinary Catheter Management: Solorzano: Cath Placed During This Visit: yes Reason for Continuing Indwelling Catheter: Accurate Measurement of Urinary Output in Critically Ill Patients Urinary Catheter Date of Insertion: 11/23/23 Urinary Catheter Time of Insertion: 22:12 History History History 2 Term 2 0 Miscarriages/Ectopic 0 Living Children 2 Discharge Data Studies Completed and Pending Laboratory Results WBC 11.56 10^3/uL (3.29-11.43) H 11/24/23 22:35 RBC 3.07 10^6/uL (3.85-5.65) L 11/24/23 22:35 Hgb 9.50 g/dL (11.27-16.99) L 11/24/23 22:35 Hct 27.8 % (36-47) L 11/24/23 22:35 MCV 90.6 fl (85-98) 11/24/23 22:35 MCH 30.9 pg (27-33) 11/24/23 22:35 MCHC 34.2 g/dL (30-55) 11/24/23 22:35 RDW 13.5 % (12.1-15.1) 11/24/23 22:35 Plt Count 164 10^3/cmm (157-399) 11/24/23 22:35 MPV 10.5 fL (7.4-10.4) H 11/24/23 22:35 Neut % (Auto) 74.8 % 11/23/23 16:25 Lymph % (Auto) 18.5 % 11/23/23 16:25 [place] % (Auto) 4.8 % 11/23/23 16:25 Eos % (Auto) 1.1 % 11/23/23 16:25 Baso % (Auto) 0.2 % 11/23/23 16:25 Neut # (Auto) 6.78 10^3/uL (1.8-7.7) 11/23/23 16:25 Lymph # (Auto) 1.7 10^3/uL (0.8-4.8) 11/23/23 16:25 [place] # (Auto) 0.4 10^3/uL (0.2-0.9) 11/23/23 16:25 Eos # (Auto) 0.1 10^3/uL (0.0-0.8) 11/23/23 16:25 Baso # (Auto) 0.0 10^3/uL (0.0-0.1) 11/23/23 16:25 Nucleated RBC % (auto) 0 % 11/23/23 16:25 Nucleated RBCs # 0.0 /100WBC 11/23/23 16:25 Blood Type A Positive 11/23/23 16:25 Rho(D) Type Rh positive 11/23/23 16:25 Antibody Screen Negative 11/23/23 16:25 Vitals Last Vital Signs Temp 98.4 F 11/25/23 10:10 Pulse 54 L 11/25/23 10:10 Resp 17 11/25/23 10:10 BP 110/68 11/25/23 10:10 Pulse Ox 97 11/25/23 10:10 O2 Del Method Room Air 11/25/23 10:10 Results Labs OB ([facility]): Obstetrics US 07/24/23 Blood Type A Positive 11/23/23 Antibody Screen Negative 11/23/23 Hct 27.8 % (36-47) L 11/24/23 Hgb 9.50 g/dL (11.27-16.99) L 11/24/23 Rho(D) Type Rh positive 11/23/23 Plt Count 164 10^3/cmm (157-399) 11/24/23 Discharge Plan Discharge Patient Disposition: Home Condition: Stable Prescriptions: New ibuprofen 800 mg Tablet 800 mg PO TID Qty: 90 0RF docusate sodium 100 mg Capsule 100 mg PO BID Qty: 60 0RF Continued capsule 1 cap PO DAILY Discharge Orders: Discharge Order (Routine); Ordered 11/25/23 Ordered By: Maryanne Tomlin Referrals: Maryanne Tomlin DO [Primary Care Provider] - 12/09/23 9:30 am (6 weeks appointment on 01/06/2024 0930) Discharge Diet: Regular Discharge Activity: Increase activity as tolerated Patient Instructions: Depression (DC), Perineal Care (DC), Bleeding (DC), Preeclampsia and Eclampsia After Delivery (GEN), Hemorrhage (DC), OB Discharge Report, OB Food/Drug Interaction Guide, OB Care at Home, Opioid Safety, OB Home Care Activity Restrictions/Additional Instructions: Pelvic rest for 6 weeks. Discharge Attestations C[employer]Y OUT CLERK AND SHELF STOCKER Time Spent in Discharge Care*: less than 30 min Coding Level of Care Code Acute Code for Chg Fwd Diagnoses Spontaneous vaginal delivery O80
[2023-11-25 12:44] VITALS: BP 112/73; PULSE 69; RESP 17; TEMP 36.7; O2SAT 97
[2023-11-25 12:59] VITALS: BP 112/73; PULSE 69; RESP 17; TEMP 36.7; O2SAT 97
--- NOTE | 2023-11-25 14:29 | ANE.PACU2 ---
Inpatient post-anesthesia follow up: Airway intact: Yes Vital signs: Temperature 98.0 F Pulse Rate 69 Respiratory Rate 17 Blood Pressure 112/73 Pulse Oximetry 97 Oxygen Delivery Me thod Room Air Oxygen Flow Rate Fraction of Inspir ed Oxygen Hydration adequate: Yes Nausea and vomiting: No Pain level: 2 Mental status: Baseline Epidural Start/End: Epidural Start Date: 11/23/23 Epidural Start Time: 21:14 Epidural End Date: 11/24/23 Epidural End Time: 10:05
== END 2023-11-25 12:59 | disposition home or self-care (01) | DRG 807 ==
LOC: OBGYN 00:37 → OPOB 07:30
PROVIDERS: Admitting Provider Family Medicine; PCP Family Medicine; Visit Provider Family Medicine
DX: O99.334 Smoking (tobacco) complicating childbirth (principal); Z37.0 Single live birth; Z3A.39 39 weeks gestation of pregnancy; O70.0 First degree perineal laceration during delivery
CPT/HCPCS: 36415; 51702; 59025; 59409; 85025; 85027; 86850; 86900; J2590; J2795; J7120; J7121

== ENCOUNTER → 2023-12-22 09:14 | Outpatient (BNVA) | payer BC, MEDICAID, SELFPAY | PROVIDERS: PCP Family Medicine; Referring Provider Family Medicine; Visit Provider Obstetrics & Gynecology | DX: Z30.9 Encounter for contraceptive management, unspecified (principal) | CPT/HCPCS: 81025 ==